=== PATIENT | male | born 1985 | race African-American/Black ===

== ENCOUNTER 2018-07-28 21:55 | Emergency (ER) | payer OTHER ==
[2018-07-28 22:11] VITALS: BP 145/78
--- NOTE | 2018-07-28 22:47 | XRAY Report ---
Reason: swelling/pain R hand. Procedure Date: 07/28/2018 Accession Number: [id number] / [id number] Procedure: XR - Hand 3 View RT CPT Code: FULL RESULT: EXAM: RIGHT HAND RADIOGRAPHY EXAM DATE: 07/28/2018 10:30 PM. CLINICAL HISTORY: Swelling/pain R hand. COMPARISON: None. TECHNIQUE: 4 views. FINDINGS: Bones: Fracture at the neck of the fifth metacarpal with approximately 30 degrees volar angulation of the distal fracture fragment. Joints: No dislocation seen. Joint spaces appear intact. Soft Tissues: Soft tissue swelling. IMPRESSION: 1. Fracture at the fifth metacarpal neck with approximately 30 degrees volar angulation of the distal fragment. RADIA
--- NOTE | 2018-07-28 22:49 | ED Physician Documentation ---
PD HPI UPPER EXT INJURY - Stated complaint Stated Complaint: HAND INJURY - Chief complaint Chief Complaint: Ext Problem - History obtained from History obtained from: Patient - History of Present Illness Location: Right, Hand Type of injury: Blunt / blow (he punched a table in anger and has pain ulnar side hand over 5th MC area.) Timing - onset: Today Timing - duration: Hours Timing - details: Abrupt onset, Still present Worsened by: Moving, Palpating Associated symptoms: Swelling. No: Weakness, Numbness Similar symptoms before: Has not had sx before Recently seen: Not recently seen Review of Systems Skin: denies: Abrasion (s), Laceration (s) Neurologic: denies: Focal weakness, Numbness PD PAST MEDICAL HISTORY - Past Medical History Past Medical History: No Cardiovascular: None Respiratory: Asthma Neuro: None Endocrine/Autoimmune: None GI: None : None HEENT: None Psych: None Musculoskeletal: None Derm: None - Past Surgical History Past Surgical History: No - Present Medications Home Medications: Ambulatory Orders Medication Instructions Recorded Confirmed HYDROcod/ACETAM 5/325 [[place] 5/325] 1 tab PO Q6H PRN #20 tablet 07/28/18 Naproxen [Naprosyn] 500 mg PO BID PRN #20 tablet 07/28/18 - Allergies Allergies/Adverse Reactions: Allergies Allergy/AdvReac Type Severity Reaction Status Date / Time No Known Drug Allergies Allergy Verified 07/28/18 22:11 - Social History Does the pt smoke?: Yes Smoking Status: Current every day smoker Does the pt drink ETOH?: Yes Does the pt have substance abuse?: No - Immunizations Immunizations are current?: Yes - POLST Patient has POLST: No PD ED PE NORMAL - Vitals Vital signs reviewed: Yes - General General: Alert and oriented X 3, No acute distress, Well developed/nourished - Derm Derm: Normal color, Warm and dry - Extremities Extremities: Normal ROM s pain (pain with flex/ext of little finger but has good strength. No malrotation with flexion. ), Other (tender with swelling over distal fifth MC area. ) - Neuro Neuro: No motor deficit, No sensory deficit Results - Vitals Vitals: Oxygen O2 Source Room air - Rads (name of study) right hand Radiology: Prelim report reviewed, EMP read contemporaneously (boxers fracture, slight angled, not displaced. ) Procedures - Splint (location) right hand Splint applied by: Tech Type of splint: Fiberglass, Ulnar gutter Other: Patient tolerated well, No complications, Neurovascular intact PD MEDICAL DECISION MAKING - ED course Complexity details: reviewed results, considered differential, d/w patient - Sepsis Event Vital Signs: Oxygen O2 Source Room air Departure - Departure Disposition: 01 Home, Self Care Clinical Impression: Fracture of fifth metacarpal bone of right hand Qualifiers: Encounter type: initial encounter Fracture type: closed Metacarpal location: neck Fracture alignment: nondisplaced Qualified Code(s): S62.366A - Nondisplaced fracture of neck of fifth metacarpal bone, right hand, initial encounter for closed fracture Condition: Stable Record reviewed to determine appropriate education?: Yes Instructions: ED Fx Boxer Follow-Up: [facility] [Provider Group] Prescriptions: HYDROcod/ACETAM 5/325 [[place] 5/325] 1 tab PO Q6H PRN #20 tablet PRN Reason: Pain Naproxen [Naprosyn] 500 mg PO BID PRN #20 tablet PRN Reason: Pain Comments: Keep the splint on to protect the fracture and allow healing. He will need to have it splinted for about 4 weeks. Follow-up with orthopedics in about 1 and half weeks to ensure its healing in the still proper position and the splint may need changing at that time due to decreased swelling. Call for an appointment. Naproxen or ibuprofen twice daily for inflammation and pain. Add Tylenol or hydrocodone if needed for pain. Limited use of the right hand with the splint in place. Forms: Activity restrictions Discharge Date/Time: 07/28/18 23:38
[2018-07-28] MEDS ORDERED: IBUPROFEN 600 MG TABLET PO STA (23:06)
[2018-07-28] MEDS ORDERED: HYDROcod/ACET 5/325 Prepack 4 PO STA (23:06)
== END 2018-07-28 23:38 | disposition home or self-care (01) ==
LOC: ED 21:55
DX: S92.354A Nondisplaced fracture of fifth metatarsal bone, right foot, initial encounter for closed fracture (principal); W22.03XA Walked into furniture, initial encounter; F17.200 Nicotine dependence, unspecified, uncomplicated
CPT/HCPCS: 29125; 73130; 99283; A9270

== ENCOUNTER 2019-06-16 09:11 | Outpatient (CLI) | payer OTHER ==
[2019-06-16] MEDS ORDERED: ALBUTEROL NEB 2.5 MG/3 ML INH SCH (11:44)
== END 2019-06-16 09:12 | disposition home or self-care (01) ==
LOC: RT 09:11
PROVIDERS: ATTEND Nurse Practitioner Family
DX: M54.5 Low back pain (principal); J45.909 Unspecified asthma, uncomplicated; Z72.0 Tobacco use
CPT/HCPCS: 94060; 94664; 94727; 94729

== ENCOUNTER 2023-05-31 00:06 | Outpatient (CLI) | payer OTHER | END 2023-05-31 00:07 | disposition short-term general hospital (02) | LOC: EMS 00:06 | DX: S71.141A Puncture wound with foreign body, right thigh, initial encounter (principal); W32.0XXA Accidental handgun discharge, initial encounter; Y92.009 Unspecified place in unspecified non-institutional (private) residence as the place of occurrence of the external cause | CPT/HCPCS: A0425; A0427 ==